=== PATIENT | female | born 1980 | race Caucasian/White ===

== ENCOUNTER → 2020-12-01 09:00 | Outpatient (CLI) | payer OTHER, BC, SELFPAY ==
--- NOTE | 2020-12-01 09:02 | DI.US.S_ITS ---
LIMITED ULTRASOUND OF RIGHT BREAST: 12/01/2020 CLINICAL: Palpable right breast lump x 10 days. . No prior exams were available for comparison. Color flow and real-time ultrasound of the right breast 7 o'clock region were performed on the areas of interest. There is a benign 0.8 cm x 0.7 cm x 0.8 cm oval cyst in the right breast at 7 o'clock posterior depth 10 cm from the nipple. This oval cyst is anechoic with a well-defined boundary and posterior acoustic enhancement. This correlates as palpated. Color flow imaging demonstrates that there is no vascularity present. IMPRESSION: BENIGN There is no sonographic evidence of malignancy. The 0.8 cm x 0.7 cm x 0.8 cm oval cyst in the right breast is consistent with a simple cyst and is benign. A 1 year screening mammogram is recommended. This exam was interpreted at Station ID: [id number]. Electronically Signed By: Naeem perez/tracie:12/01/2020 09:58:47 letter sent: Normal Exam Ultrasound BI-RADS: 2 Benign
== END ==
PROVIDERS: PCP Registered Nurse Diabetes Educator; Referring Provider Family Medicine; Visit Provider Family Medicine
DX: N63.13 Unspecified lump in the right breast, lower outer quadrant (principal); N60.01 Solitary cyst of right breast
CPT/HCPCS: 76642

== ENCOUNTER 2020-12-12 19:12 | Emergency (ER) | payer OTHER, BC, SELFPAY ==
--- NOTE | 2020-12-12 19:27 | DI.US.S_ITS ---
PROCEDURE: US BREAST LT LIMITED COMPARISON: Non. INDICATIONS: LEFT BREAST LUMP WITH SKIN REDNESS FINDINGS: There is a 1.9 x 1.3 x 1.6 centimeter hypoechoic complex mass in the 12 o'clock position left breast. Doppler evaluation demonstrates peripheral vascularity associated lesion. IMPRESSION: 1.9 x 1.3 by 1.6 centimeter complex mass in the 12:00 o'clock position of the left breast with peripheral vascularity may represent inflammatory phlegmon, however neoplastic process is not excluded. Recommend mammogram for further evaluation. Dictated by: Norma Rojas MD, PhD on 12/12/2020 at 19:49 Approved by: Norma Rojas MD, PhD on 12/12/2020 at 19:53
[2020-12-12 19:32] VITALS: BMI 25.0
[2020-12-12 19:51] VITALS: BP 119/75; PULSE 75; RESP 18; TEMP 36.6; O2SAT 99
--- NOTE | 2020-12-12 20:16 | ED.SKABFB ---
HPI - Skin/Abscess/Foreign Bdy General Chief complaint: Skin/Abscess/Foreign Body Stated complaint: lump and red spot on breast/possible mastitis Time Seen by Provider: 12/12/20 19:15 Source: family Mode of arrival: Ambulatory Limitations: no limitations History of Present Illness HPI narrative: 40-year-old female nonsmoker is a breast-feeding mother the presents with a chief complaint of 1 day of painful lump in left breast with overlying redness. She has no systemic symptoms such as fever chills nor nausea or vomiting. She has continued to breast-feed without difficulty. Related Data Home Medications Medication Instructions Recorded Confirmed [employer] my kind PO 05/12/20 11/30/20 theebig-[id number] PO 05/12/20 11/30/20 cholecalciferol (vitamin D3) PO 05/12/20 11/30/20 ritual vitamins PO 05/12/20 11/30/20 Previous Rx's Medication Instructions Recorded amoxicillin 875 mg-potassium 1 tab PO BID #20 tab 12/12/20 clavulanate 125 mg tablet (Augmentin) Allergies Allergy/AdvReac Type Severity Reaction Status Date / Time No Known Drug Allergies Allergy Verified 12/12/20 19:50 Review of Systems Review of Systems Narrative: GENERAL: Denies chills, fatigue, malaise, fever, sweats. HEENT: Denies sinus pain, ear pain, sore throat, difficulty swallowing, dizziness. RESPIRATORY: Denies dyspnea, cough, wheezing, hemoptysis, sputum. CARDIOVASCULAR: Denies chest pain, palpitations, orthopnea, edema, GASTROINTESTINAL: Denies nausea, vomiting, abdominal pain, diarrhea, constipation, melena. : Denies dysuria, frequency, incontinence, hematuria, urinary retention. MUSCULOSKELETAL: denies weakness, joint pain, or bony pain SKIN: See HPI NEUROLOGIC: Denies weakness, headache, numbness, change in speech, confusion, seizures, incoordination. PSYCHIATRIC: No concerning psychosocial issues. 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 Extraoccular muscles are intact bilaterally. There is no subconjunctival hemorrhage or exudate. CHEST: Left breast with palpable , painful mass in RUQ with some overlying redness. Lungs are clear to auscultation bilaterally and free of wheezes, rales, or rhonchi. Heart rate is regular rhythm, there are no murmurs, clicks, rubs, or gallops. ABD: Abdomen is soft and nontender. There is no guarding or rebound. Bowel sounds are normal in all 4 quadrants. There is no mass or organomegaly. EXT: Full painless ROM of all extremities with no loss of sensation or strength. SKIN: Warm, pink, and dry. No erythema or rash Initial Vital Signs Initial Vital Signs: Vital Signs Temperature 98 F 12/12/20 19:51 Pulse Rate 75 12/12/20 19:51 Respiratory Rate 18 12/12/20 19:51 Blood Pressure 119/75 12/12/20 19:51 Pulse Oximetry 99 12/12/20 19:51 Course Orders Ordered: ED Orders 12/12/20 19:27 US breast LT limited Stat 12/12/20 21:36 Wound Culture and Gram Stain Stat Discontinued Medications Amoxicillin/Clavulanate Potassium (Amoxicillin/Clav 875/125 Mg) 1 tab PO NOW ONE Stop: 12/12/20 21:18 Last Admin: 12/12/20 21:31 Dose: 1 tab Documented by: LASHAE Lidocaine/Sodium Bicarbonate (Lido 1%/Sod Bicarb 8.4% (10ml) 10 Ml Syringe) 10 ml INJ NOW ONE Stop: 12/12/20 21:18 Last Admin: 12/12/20 21:31 Dose: 10 ml Documented by: LASHAE Consultations Consultation #1: Dr. Hill consulted for assistance with evaluation and drainage of abscess of breast tissue. Vital Signs Vital signs: Vital Signs - 8 hr 12/12/20 19:51 12/12/20 21:58 Temperature 98 F Pulse Rate 75 76 Respiratory Rate 18 18 Blood Pressure 119/75 119/75 Pulse Oximetry 99 99 MDM - Skin/Abscess/Foreign Bdy Imaging Data Breast US: Radiologist's Impression: Beata Dey??40??F??1980 ? Allergy/Adv: No Known Drug Allergies (More??) Close Breast Ultrasound (Signed) Norma Rojas - 12/12/20 Breast Ultrasound (Signed) Naeem Estevez - 12/01/20 DI Result CC 08/16/20 DI Result CC 08/16/20 DI Result CC 08/16/20 DI Result CC 06/03/20 [id number] Ultrasound Report Signed Patient: Beata Dey MR#: [id number] : 1980 Acct:[id number] Age/Sex: 40 / F Date of Service: 12/12/20 Loc: ED Accession Number: [id number] ?? Procedure: US breast LT limited Ordering Provider: Faisal Gaitan D.O. PROCEDURE: US BREAST LT LIMITED ? COMPARISON: Non. ? INDICATIONS: LEFT BREAST LUMP WITH SKIN REDNESS ? FINDINGS:? There is a 1.9 x 1.3 x 1.6 centimeter hypoechoic complex mass in the 12 o'clock position left breast. Doppler evaluation demonstrates peripheral vascularity associated lesion. ? IMPRESSION:? 1.9 x 1.3 by 1.6 centimeter complex mass in the 12:00 o'clock position of the left breast with peripheral vascularity may represent inflammatory phlegmon, however neoplastic process is not excluded.? Recommend mammogram for further evaluation. ? ? ? Dictated by: Norma Rojas MD, PhD on 12/12/2020 at 19:49 ? ? Approved by: Norma Rojas MD, PhD on 12/12/2020 at 19:53 ? MDM Narrative Medical decision making narrative: Breast-feeding mother without systemic findings complains of pain redness and tenderness to left breast. Physical exam and ultrasound are consistent with abscess. General surgery consulted for drainage, please consult Dr. Hill's note for details. Purulent drainage obtained and sent for Cx. ABX given, instructions to use warm compresses, continue to breast feed given. Return precautions given, questions answered to their apparent satisfaction Discharge Plan Departure Patient Disposition: Home Clinical Impression: Abscess of breast, left Activity Restrictions/Additional Instructions: Please call Dr. Jorgensen office [place] after 9:00 a.m. and make an appointment to see 1 of his partners on Monday or Monday. The Telephone number is [phone]. You may also which to make an appointment to follow-up with Dr. Loida Jeff who works for [employer]. At some point he will need a mammogram to evaluate this lump. I suspect it is just from infection but it will be harmful to be more certain. Cultures have been taken and the results should be available Monday or Monday.(it usually takes 2 days of growth). If this worsens over the weekend she will need to return to an ER. You may use warm packs on your breast and you should continue to pump the breast. Prescriptions: New amoxicillin-pot clavulanate [Augmentin] 875-125 mg tablet 1 tab PO BID Qty: 20 RF: 0 No Action ritual vitamins PO RF: 0 [employer] my kind PO RF: 0 cholecalciferol (vitamin D3) PO RF: 0 [id number] PO RF: 0 Referrals: Trav Hill MD [Physician] - Manas Allen ARNP [Primary Care Provider] -
[2020-12-12] MEDS: AMOXICILLIN/CLAV 875/125 MG 1 TAB PO (21:31)
[2020-12-12] MEDS: LIDO 1%/SOD BICARB 8.4% (10ML) 10 ML SYRINGE INJ (21:31)
--- NOTE | 2020-12-12 21:32 | PC.NURSE ---
Lido 1% administered by Dr. Person.
[2020-12-12 21:58] VITALS: BP 119/75; PULSE 76; RESP 18; O2SAT 99
--- NOTE | 2020-12-12 21:58 | P.OP.COLON_ITS ---
Operative Date/Time/Diagnoses Date of procedure: 12/12/20
--- NOTE | 2020-12-12 21:58 | PM.OP.COLON ---
Operative Date/Time/Diagnoses Date of procedure: 12/12/20
--- NOTE | 2020-12-12 22:01 | PM.CN ---
History of Present Illness Consult details Chief complaint: lump and red spot on breast/possible mastitis Narrative: I was asked to see this patient by Dr. Gaitan. Patient is a woman who has been breast-feeding her child. She developed an area of pain and redness about 4 hours ago. This is never happened before. She was hesitant to have a male surgeon take care of her but Acquiesced ultimately and I came into see her. Meds Home Medications and Allergies Home Medications Medication Instructions Recorded Confirmed Type [employer] my kind PO 05/12/20 11/30/20 History ihkevxs-uqymfgmms-nsfg PO 05/12/20 11/30/20 History cholecalciferol (vitamin D3) PO 05/12/20 11/30/20 History ritual vitamins PO 05/12/20 11/30/20 History amoxicillin 875 mg-potassium 1 tab PO BID #20 tab 12/12/20 Rx clavulanate 125 mg tablet (Augmentin) Allergies Allergy/AdvReac Type Severity Reaction Status Date / Time No Known Drug Allergies Allergy Verified 12/12/20 19:50 Review of Systems Review of Systems Narrative: No known allergies. No prior breast masses. Exam Vital Signs (past 8 hours): - 12/12/20 19:51 12/12/20 21:58 Temperature 98 F Pulse Rate 75 76 Respiratory Rate 18 18 Blood Pressure 119/75 119/75 Pulse Oximetry 99 99 Oxygen Delivery Method Room Air Narrative Exam Narrative: 1-1/2 cm palpable mass under an area of about 4 cm circular of redness. Mildly tender. Mass is discrete. It feels to be In the superficial breast but not immediately beneath the skin. it is located at about the 1 o'clock position but well away from the nipple-areolar complex by at least 5 in with the patient sitting up. Area over the mass was prepped with chlorhexidine and alcohol. 1 cc of 1% lidocaine with neut was injected immediately beneath the skin and just below the lesion. Lesion was stabilized needle inserted and I aspirated about 3 cc of thick purulence material. This was sent for culture. Band-Aid was applied once needle was removed. Objective Imaging Breast ultrasound: My impression: patient has a Somewhat circular complex mass measuring about 1.9 cm in maximum diameter that is at a depth of about 1.2 cm from the skin surface. 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 Was given instructions to call my office for an appointment on Monday. I will also send a message to my staff to make her an appointment to see 1 of my colleagues. I also suggested that if she wanted of woman surgeon she could see Dr. Loida Jeff who lives in [place] where she also lives. I also expressed that she does need a mammogram at some point in her care though she may not want it right now as her breast is so tender. She was sent home on Augmentin 875 b.i.d. and given a dose this evening By the ER physician. Time Spent With Patient Critical Care time: I spent a total of [] minutes of critical care time on this patient's care today; this time is exclusive of procedural time.
== END 2020-12-12 22:15 | disposition home or self-care (01) ==
PROVIDERS: Emergency Provider Emergency Medicine; PCP Registered Nurse Diabetes Educator
DX: N61.1 Abscess of the breast and nipple (principal)
CPT/HCPCS: 76642; 87070; 87075; 87077; 87147; 87186; 87205; 99283; 99284

== ENCOUNTER → 2025-01-01 09:23 | Outpatient (CLI) | payer OTHER, SELFPAY ==
--- NOTE | 2025-01-01 09:24 | DI.ECHO.S_ITS ---
[facility] : : [address] : : [place] : : [id number] : : Phone: [phone] Echocardiogram Report + + :Name: MAXIMO LENTZ Study Date: 01/01/2025 Height: 65 in : :[facility] ReadingLocation: Weight: 140 lb : : Gender: Female BSA: 1.7 m2 : :: 1980 Age: 44 yrs BP: 119/94 mmHg: :Reason For Study: HEART DISEASE, HX OF DEEPA ANOMOLY : :Ordering Physician: DAKOTA, : :SHAE Performed By: Calvin Segura : :Referring: SHAE DUNCAN : + + Interpretation Summary Normal sinus rhythm. Normal LV size and wall thickness; Normal wall motion and LV systolic function. EF is 60-65%. Moderate RA enlargement and borderline RV enlargement PT HAD SURGICAL CORRECTION OF DEEPA'S ANOMOLY APPROX 10 YEARS AGO. Tricuspid valve appears repaired via cone repair. No significant regurgitation or pulmonary hypertension. There is thickening of the tricuspid valve annulus long the inferior edge (best appreciated in parasternal short axis view) presumably where plication of atrialized RV was performed. Otherwise no significant valve abnormalities. No prior study available for comparison. Procedure: A two-dimensional transthoracic echocardiogram with color flow and Doppler was performed. The study quality was technically adequate. The patient had an echocardiogram, but there is no comparison study available. The patient was in normal sinus rhythm during the exam. Left Ventricle: The left ventricle is normal in size. There is normal left ventricular wall thickness. There is no ventricular septal defect visualized. The ejection fraction is estimated to be 60-65%. There are no focal wall motion abnormalities. Diastolic parameters suggest probable normal left ventricular diastolic function and normal filling pressures. Right Ventricle: The right ventricle is borderline dilated. Atria: The left atrial size is normal. The right atrium is moderately dilated. There is no Doppler evidence for an interatrial shunt. Mitral Valve: The mitral valve leaflets appear normal. There is no evidence of stenosis, fluttering, or prolapse. There is trace mitral regurgitation. Aortic Valve: The aortic valve is trileaflet. The aortic valve opens well. There is trace aortic regurgitation. Tricuspid Valve: An annuloplasty ring is noted in the tricuspid position. There is mild tricuspid regurgitation. Pulmonic Valve: The pulmonic valve is not well seen, but is grossly normal. There is trace pulmonic regurgitation. Great Vessels: The aortic root is normal size. The dimensions of the ascending aorta are normal. The pulmonary artery is not well visualized, but is probably normal size. The IVC is dilated (diameter is greater than 2.1 cm) yet it collapses greater than 50% with a sniff. This suggests a right atrial pressure of 8 mm Hg. Pericardium/ Pleura There is no pericardial effusion. There is no pleural effusion. MMode/2D Measurements & Calculations LVIDd: 3.7 cm LVOT diam: 2.2 cm LVIDs: 2.4 cm Ao root diam: 3.0 cm FS: 34.6 % asc Aorta Diam: 2.8 cm EPSS: 0.43 cm Ao Arch Diam (Prox Trans): 0.90 cm IVSd: 0.94 cm LVPWd: 0.75 cm LV south. diameter/BSA (cm/m^2): 2.1 LV sys. diameter/BSA (cm/m^2): 1.4 LA A2 area: 17.7 cm2 RA long axis: 5.8 cm LA A4 area: 13.1 cm2 RA area: 22.9 cm2 LA length (vol): 5.0 cm RA vol: 77.3 ml LA vol: 39.1 ml RA : 45.5 ml/m2 LA vol index: 23.0 ml/m2 IVC diam: 2.3 cm RVD1 (basal): 3.0 cm RVD2 (mid): 2.2 cm TAPSE: 2.1 cm Doppler Measurements & Calculations Ao V2 max: 166.2 cm/sec LVOT Max Alistair: 89.9 cm/sec Ao V2 mean: 116.4 cm/sec LV V1 max P.2 mmHg Ao max P.0 mmHg LV V1 VTI: 18.7 cm Ao mean P.9 mmHg AYDEE(I,D): 2.0 cm2 Ao V2 VTI: 35.0 cm AYDEE(V,D): 2.1 cm2 sev ratio: 0.54 AYDEE indexed to BSA (cm^2/m^2): 1.2 MV E max alistair: 74.6 cm/sec TR max alistair: 218.9 cm/sec MV A max alistair: 69.2 cm/sec TR max P.2 mmHg MV E/A: 1.1 PA V2 max: 96.9 cm/sec Med Peak E' Alistair: 5.1 cm/sec PA V2 mean: 71.0 cm/sec E/E' med: 14.7 PA mean P.2 mmHg Lat Peak E' Alistair: 8.8 cm/sec PA pr(Accel): 25.9 mmHg E/E' lat: 8.5 E/e' average: 11.6 MV dec time: 0.20 sec SV(MARLEN): 71.1 ml Electronically signed by: Clementina Briscoe M.D. on Reading Physician:01/02/2025 04:50 AM
== END ==
LOC: ECHO 09:24
PROVIDERS: PCP Student in an Organized Health Care Education/Training Program; Referring Provider Chiropractor; Visit Provider Chiropractor
DX: I07.1 Rheumatic tricuspid insufficiency (principal); I25.9 Chronic ischemic heart disease, unspecified
CPT/HCPCS: 93306